=== PATIENT | female | born 1970 | race Two or more races ===

== ENCOUNTER 2024-12-08 07:00 | Day surgery (SDC) | payer OTHER ==
[2024-11-30 10:20] LABS: BASO % 0.8 % (0.1-1.2); EOS # 0.15 (0.04-0.54); EOS % 1.3 % (0.7-7.0); LYMPH # 2.84 (1.18-3.74); LYMPH % 25.0 % (19.3-53.1); MEAN PLATELET VOLUME 9.80 fl (9.4-12.4); MONO # 0.65 (0.24-0.82); MONO % 5.7 % (4.7-12.5); NEUT # 7.60 (1.56-6.13); NEUT % 66.8 % (34.0-71.1); RED CELL DISTRIBUTION WIDTH 13.4 % (11.6-14.4)
[2024-11-30 10:21] LABS: URINE APPEARANCE Clear; URINE BILIRRUBIN Negative (NEGATIVE); URINE BLOOD Trace; URINE COLOR Yellow; URINE GLUCOSE Negative (NEGATIVE); URINE KETONE Negative (NEGATIVE); URINE LEUKOCYTE Trace; URINE NITRATE Negative; URINE UROBILINOGEN 0.2 E.U./dl
[2024-11-30 10:25] LABS: URINE BACTERIA 1373.7 uL (0.0-1933); URINE EPITHELIAL CELLS 36.7 uL (0.0-38.8); URINE RBC 14.2 uL (0.0-20.8); URINE WBC 9.2 uL (0.0-23.2)
[2024-11-30 10:50] LABS: URINE CAST 0.00 uL (0.0-1.40); URINE PROTEIN 100 (NEGATIVE)
[2024-11-30 11:03] LABS: INR 0.96
[2024-11-30 11:46] LABS: ALT/SGPT 25.0 U/L (12-78); AST/SGOT 13.0 U/L (15-37); BILIRUBIN TOTAL 0.65 mg/dL (0.3-1.2); BUN CREA RATIO 21.0 (7.0-25.0); CREATININE SERUM 0.61 mg/dL (0.55-1.02); GFR 102.99; GLOBULINA 3.8 G/DL (2.4-3.5); GLUCOSE FASTING 126.0 mg/dL (65-100); OSMOLALITY SERUM 285.0 MOSM/KG (275-295); TSH 1.9 uIU/mL (0.358-3.74)
[~2024-12-08 07:00] MED LIST: COZAAR25 MG PO; JARDIANCE25 MG PO; METFORMIN HCL500 MG; OZEMPIC1 MG/0.71 SQ
[2024-12-08] MEDS ORDERED: POVIDONE-IODINE 118 ML BOTT TOP ONE (07:51)
[2024-12-08] MEDS ORDERED: CEFOXITIN SODIUM 2,000 MG VIAL IV ONE ×2 (07:52→08:20)
[2024-12-08] MEDS ORDERED: NAPR500T14 PO (09:26)
[2024-12-08] MEDS ORDERED: AVIDOXY100 MG PO (09:26)
[2024-12-08] MEDS ORDERED: PROMETHAZINE HCL 50 MG/ML AMPUL IM ONE (09:30)
== END 2024-12-08 15:55 | disposition home or self-care (01) ==
LOC: CIR.AMB 07:00
PROVIDERS: ATTEND Obstetrics & Gynecology
DX: D25.0 Submucous leiomyoma of uterus (principal); N85.02 Endometrial intraepithelial neoplasia [EIN]; N92.0 Excessive and frequent menstruation with regular cycle